=== PATIENT | female | born 1990 | race African-American/Black ===

== ENCOUNTER 2017-11-13 23:47 | Inpatient (IN) ==
[2017-11-14] MEDS ORDERED: ONDANSETRON 4 MG/2 ML VIAL IV STA (00:57)
[2017-11-14] MEDS ORDERED: MORPHINE 4 MG/1 ML VIAL IV STA (00:58)
[2017-11-14 01:38] LABS: Basophils % 0.2 % (0.0-0.8); Eosinophils # 0.1 10*3/uL (0.0-0.87); Eosinophils % 0.4 % (0.00-10.9); Hematocrit 40.7 VOL% (35.7-47.0); Hemoglobin 13.7 GM/DL (12.0-16.0); Immature Granulocytes % 0.3 %; Immature Granulocytes Absolute 0.04 #; Lymphocytes # 4.1 10*3/uL (1.4-4.0); Lymphocytes % 31.7 % (21.3-54.2); Mean Corpuscular HGB Conc 33.7 GM/DL (32-36); Mean Corpuscular Hemoglobin 29 PG (27-34); Mean Corpuscular Volume 85.7 FL (87-102); Mean Platelet Volume 10.7 FL (9.6-12.0); Monocytes # 0.5 10*3/uL (0.11-0.8); Monocytes % 4.1 % (1.7-12.7); Neutrophils # 8.3 10*3/uL (1.4-7.4); Neutrophils % 63.3 % (38.7-73.9); Platelet Count 326 T/CUMM (130-400); Red Blood Count 4.75 MC/CUMM (3.8-5.5)
[2017-11-14 01:49] LABS: INR 1.1; PT Patient Result 11.4 SECS; Partial Thromboplastin Time 25.2 SECS (0-40)
[2017-11-14 01:59] LABS: Albumin 4.1 G/DL (3.4-5.0); Apearance,Urine Slightly Hazy (Clear); Bilirubin,Total 0.5 MG/DL (0.2-1.0); Bilirubin,Urine Negative (Negative); Blood, Urine Small mg/dL (Negative); Calcium 9.5 MG/DL (8.5-10.1); Glucose,Urine (UA) Negative (Negative); Ketones,Urine Negative (Negative); Mucus,Urine Occasional /LPF (Occasional); Nitrite,Urine Negative (Negative); Osmolality,Calculated 275.5 MOS/KG (273-304); Potassium 4.2 MMOL/L (3.5-5.1); Protein,Urine 30 MG/DL; RBC,Urine 1 /HPF (0-4); Squamous Epithelial Cell,Urine Few /HPF (0-10); Total Protein 7.5 G/DL (6.4-8.3); Urine Color Yellow (Yellow); Urine Specific Gravity 1.019 (1.001-1.035); WBC,Urine 5 /HPF (0-6)
[2017-11-14] MEDS ORDERED: HYDROmorphone 2 MG/1 ML VIAL IV PRN (06:15)
[2017-11-14] MEDS: DEXT 5% NACL 0.45% KCL 10 MEQ 10 MEQ/1,000 ML BAG IV SCH ×2 (07:09→16:17)
[2017-11-14] MEDS: MORPHINE 4 MG/1 ML VIAL IV PRN ×2 (07:31→20:20)
[2017-11-14 08:33] LABS: T4 (Thyroxine) 7.7 UG/DL (4.7-13.3); Thyroid Stimulating Hormone 2.85 uIU/ml (0.358-3.74)
[2017-11-14] MEDS ORDERED: FUROSEMIDE 20 MG TABLET PO ONE (12:00)
[2017-11-14 13:19] LABS: Barbiturates Screen,Urine Negative (Negative); Benzodiazepines Screen,Urine Negative (Negative); Cannabinoid Screen,Urine Negative (Negative); Opiate Screen,Urine Positive (Negative); Phencyclidine Screen,Urine Negative (Negative)
[2017-11-14] MEDS: ASPIRIN EC 81 MG TABLET PO SCH (16:11)
[2017-11-15] MEDS: DEXT 5% NACL 0.45% KCL 10 MEQ 10 MEQ/1,000 ML BAG IV SCH (02:15)
[2017-11-15 06:16] LABS: Basophils % 0.3 % (0.0-0.8); Eosinophils # 0.1 10*3/uL (0.0-0.87); Eosinophils % 0.6 % (0.00-10.9); Hematocrit 38.4 VOL% (35.7-47.0); Hemoglobin 12.4 GM/DL (12.0-16.0); Immature Granulocytes % 0.4 %; Immature Granulocytes Absolute 0.04 #; Lymphocytes # 4.3 10*3/uL (1.4-4.0); Lymphocytes % 38.9 % (21.3-54.2); Mean Corpuscular HGB Conc 32.3 GM/DL (32-36); Mean Corpuscular Hemoglobin 29 PG (27-34); Mean Corpuscular Volume 88.3 FL (87-102); Mean Platelet Volume 10.2 FL (9.6-12.0); Monocytes # 0.5 10*3/uL (0.11-0.8); Monocytes % 4.7 % (1.7-12.7); Neutrophils # 6.1 10*3/uL (1.4-7.4); Neutrophils % 55.1 % (38.7-73.9); Platelet Count 282 T/CUMM (130-400); Red Blood Count 4.35 MC/CUMM (3.8-5.5)
[2017-11-15 06:47] LABS: Calcium 8.7 MG/DL (8.5-10.1); Osmolality,Calculated 273.7 MOS/KG (273-304); Potassium 4.1 MMOL/L (3.5-5.1)
[2017-11-15] MEDS: ASPIRIN EC 81 MG TABLET PO SCH (09:04)
[2017-11-15] MEDS ORDERED: ENALAPRIL 2.5 MG TABLET PO SCH (11:30)
[2017-11-15] MEDS: CARVEDILOL 3.125 MG TABLET PO SCH ×2 (12:19→20:59)
[2017-11-15] MEDS: FUROSEMIDE 20 MG/2 ML VIAL IV SCH (15:38)
[2017-11-15] MEDS ORDERED: POLYETHYLENE GLYCOL POWDER 17 GM PACK PO PRN (15:44)
[2017-11-16 05:19] LABS: Basophils % 0.2 % (0.0-0.8); Eosinophils # 0.1 10*3/uL (0.0-0.87); Eosinophils % 0.6 % (0.00-10.9); Hematocrit 39.9 VOL% (35.7-47.0); Hemoglobin 13.3 GM/DL (12.0-16.0); Immature Granulocytes % 0.4 %; Immature Granulocytes Absolute 0.05 #; Lymphocytes # 4.5 10*3/uL (1.4-4.0); Lymphocytes % 36.7 % (21.3-54.2); Mean Corpuscular HGB Conc 33.3 GM/DL (32-36); Mean Corpuscular Hemoglobin 29 PG (27-34); Mean Corpuscular Volume 86.7 FL (87-102); Mean Platelet Volume 10.7 FL (9.6-12.0); Monocytes # 0.6 10*3/uL (0.11-0.8); Monocytes % 4.7 % (1.7-12.7); Neutrophils % 57.4 % (38.7-73.9); Platelet Count 332 T/CUMM (130-400); Red Cell Distribution Width 14.2 % (9.3-17.3); White Blood Count 12.2 T/CUMM (4-12)
[2017-11-16 05:47] LABS: Osmolality,Calculated 276.4 MOS/KG (273-304); Potassium 3.7 MMOL/L (3.5-5.1)
[2017-11-16] MEDS ORDERED: diphenhydrAMINE CAP 25 MG CAPSULE PO ONE (08:03)
[2017-11-16] MEDS ORDERED: DIAZEPAM 5 MG TABLET PO ONE (08:03)
[2017-11-16] MEDS ORDERED: fentaNYL 100 MCG/2 ML VIAL ONE (10:32)
[2017-11-16] MEDS ORDERED: MIDAZOLAM 2 MG/2 ML VIAL ONE ×2 (10:32→10:49)
[2017-11-16] MEDS ORDERED: HEPARIN/NACL 0.9% 2 UNITS/ML 1,000 ML IV ONE (10:35)
[2017-11-16] MEDS ORDERED: diphenhydrAMINE 50 MG/1 ML VIAL ONE (10:50)
[2017-11-16] MEDS ORDERED: metOLazone 5 MG TABLET PO SCH (12:30)
[2017-11-16] MEDS: ASPIRIN EC 81 MG TABLET PO SCH (13:05)
[2017-11-16] MEDS: SPIRONOLACTONE 25 MG TABLET PO SCH (13:05)
[2017-11-16] MEDS: CARVEDILOL 3.125 MG TABLET PO SCH ×2 (13:05→21:36)
[2017-11-16] MEDS: POTASSIUM CHLORIDE 20 MEQ TABLET PO SCH ×2 (13:05→21:36)
[2017-11-16] MEDS: FUROSEMIDE 20 MG/2 ML VIAL IV SCH (13:06)
[2017-11-16] MEDS: MORPHINE 4 MG/1 ML VIAL IV PRN ×3 (13:17→23:17)
[2017-11-16] MEDS: FUROSEMIDE 40 MG/4 ML VIAL IV SCH (18:15)
[2017-11-17] MEDS: MORPHINE 4 MG/1 ML VIAL IV PRN (04:44)
[2017-11-17 06:20] LABS: Basophils % 0.3 % (0.0-0.8); Eosinophils % 0.2 % (0.00-10.9); Hematocrit 42.3 VOL% (35.7-47.0); Hemoglobin 14.3 GM/DL (12.0-16.0); Immature Granulocytes % 0.5 %; Immature Granulocytes Absolute 0.07 #; Lymphocytes # 2.7 10*3/uL (1.4-4.0); Lymphocytes % 18.1 % (21.3-54.2); Mean Corpuscular HGB Conc 33.8 GM/DL (32-36); Mean Corpuscular Hemoglobin 29 PG (27-34); Mean Corpuscular Volume 85.5 FL (87-102); Mean Platelet Volume 11.2 FL (9.6-12.0); Monocytes # 0.8 10*3/uL (0.11-0.8); Monocytes % 5.1 % (1.7-12.7); Neutrophils # 11.2 10*3/uL (1.4-7.4); Neutrophils % 75.8 % (38.7-73.9); Platelet Count 362 T/CUMM (130-400); Red Blood Count 4.95 MC/CUMM (3.8-5.5); Red Cell Distribution Width 14.3 % (9.3-17.3); White Blood Count 14.8 T/CUMM (4-12)
[2017-11-17 06:50] LABS: Calcium 9.4 MG/DL (8.5-10.1); Osmolality,Calculated 269.1 MOS/KG (273-304)
[2017-11-17 07:41] VITALS: BP 110/74
[2017-11-17] MEDS: FUROSEMIDE 40 MG/4 ML VIAL IV SCH (09:20)
[2017-11-17] MEDS: SPIRONOLACTONE 25 MG TABLET PO SCH (09:20)
[2017-11-17] MEDS: ASPIRIN EC 81 MG TABLET PO SCH (09:20)
[2017-11-17] MEDS: CARVEDILOL 3.125 MG TABLET PO SCH (09:20)
[2017-11-17] MEDS: POTASSIUM CHLORIDE 20 MEQ TABLET PO SCH (09:20)
[2017-11-17] MEDS ORDERED: SACUBITRIL/VALSARTAN 49-51 MG TABLET PO SCH (21:00)
== END 2017-11-17 10:31 | disposition home or self-care (01) | DRG 287 ==
LOC: N.ED 23:47 → N.EDINP 11-14 04:03 → SUATTDRO 11-14 04:03 → N.2E 11-14 05:56
PROVIDERS: ADMIT Internal Medicine Infectious Disease; ATTEND Internal Medicine Geriatric Medicine
PROC: CLCCHCL (ICD-10-PCS; 2017-11-16 10:45)

== ENCOUNTER 2017-12-19 19:48 | Observation (INO) ==
[2017-12-19] MEDS ORDERED: ASPIRIN 325 MG TABLET PO STA (20:52)
[2017-12-19] MEDS ORDERED: ONDANSETRON 4 MG/2 ML VIAL IV STA (20:52)
[2017-12-19] MEDS ORDERED: NITROGLYCERIN 2% OINT 1 INCH/GM PACK TOP STA (20:52)
[2017-12-19] MEDS ORDERED: MORPHINE 4 MG/1 ML VIAL IV STA (20:52)
[2017-12-19] MEDS ORDERED: FUROSEMIDE 20 MG/2 ML VIAL IV STA (21:33)
[2017-12-19 21:56] LABS: Basophils % 0.4 % (0.0-0.8); Eosinophils # 0.1 10*3/uL (0.0-0.87); Eosinophils % 0.8 % (0.00-10.9); Hematocrit 41.4 VOL% (35.7-47.0); Hemoglobin 13.7 GM/DL (12.0-16.0); Immature Granulocytes % 0.2 %; Immature Granulocytes Absolute 0.02 #; Lymphocytes # 3.6 10*3/uL (1.4-4.0); Lymphocytes % 33.7 % (21.3-54.2); Mean Corpuscular HGB Conc 33.1 GM/DL (32-36); Mean Corpuscular Hemoglobin 29 PG (27-34); Mean Corpuscular Volume 87.7 FL (87-102); Mean Platelet Volume 10.7 FL (9.6-12.0); Monocytes # 0.4 10*3/uL (0.11-0.8); Monocytes % 3.9 % (1.7-12.7); Neutrophils # 6.6 10*3/uL (1.4-7.4); Platelet Count 229 T/CUMM (130-400); Red Blood Count 4.72 MC/CUMM (3.8-5.5); Red Cell Distribution Width 13.7 % (9.3-17.3); White Blood Count 10.7 T/CUMM (4-12)
[2017-12-19 22:22] LABS: Alanine Aminotransferase 31 U/L (13-56); Alkaline Phosphatase 82 U/L (45-117); Aspartate Amino Transferase 21 U/L (0-37); Bilirubin,Total < 0.39 MG/DL (0.2-1.0); Blood Urea Nitrogen 10 MG/DL (7-18); Calcium 9.1 MG/DL (8.5-10.1); Glucose 84 MG/DL (74-106); Osmolality,Calculated 278.3 MOS/KG (273-304); Potassium 3.7 MMOL/L (3.5-5.1); Sodium 141 MMOL/L (136-145); Total Protein 7.6 G/DL (6.4-8.3)
[2017-12-19 22:49] LABS: PT Patient Result 10.8 SECS
[2017-12-19 23:12] LABS: Apearance,Urine CLEAR (Clear); Bilirubin,Urine Negative (Negative); Blood, Urine Negative (Negative); Glucose,Urine (UA) Negative (Negative); Ketones,Urine Negative (Negative); Nitrite,Urine Negative (Negative); Protein,Urine Negative; Squamous Epithelial Cell,Urine Occasional /HPF (0-10); Urine Color Colorless (Yellow); Urine Specific Gravity 1.003 (1.001-1.035); Urine Urobilinogen < 2.0 EU/DL (0.2-1.0); WBC,Urine <1 /HPF (0-6)
[2017-12-19 23:14] LABS: Barbiturates Screen,Urine Positive (Negative); Benzodiazepines Screen,Urine Negative (Negative); Cannabinoid Screen,Urine Negative (Negative); Opiate Screen,Urine Negative (Negative); Phencyclidine Screen,Urine Negative (Negative)
[2017-12-20] MEDS ORDERED: ACETAMINOPHEN 325 MG TABLET PO PRN (02:09)
[2017-12-20] MEDS ORDERED: MORPHINE 4 MG/1 ML VIAL IV PRN (02:09)
[2017-12-20] MEDS ORDERED: ONDANSETRON 4 MG/2 ML VIAL IV PRN (02:09)
[2017-12-20 05:36] LABS: Basophils % 0.3 % (0.0-0.8); Eosinophils # 0.1 10*3/uL (0.0-0.87); Eosinophils % 0.8 % (0.00-10.9); Immature Granulocytes % 0.3 %; Immature Granulocytes Absolute 0.03 #; Lymphocytes # 3.3 10*3/uL (1.4-4.0); Lymphocytes % 30.7 % (21.3-54.2); Mean Corpuscular HGB Conc 32.5 GM/DL (32-36); Mean Corpuscular Hemoglobin 28 PG (27-34); Mean Corpuscular Volume 87.3 FL (87-102); Mean Platelet Volume 11.5 FL (9.6-12.0); Monocytes # 0.5 10*3/uL (0.11-0.8); Monocytes % 4.6 % (1.7-12.7); Neutrophils # 6.9 10*3/uL (1.4-7.4); Neutrophils % 63.3 % (38.7-73.9); Platelet Count 222 T/CUMM (130-400); Red Blood Count 4.58 MC/CUMM (3.8-5.5); White Blood Count 10.8 T/CUMM (4-12)
[2017-12-20 06:26] LABS: Calcium 9.1 MG/DL (8.5-10.1); Osmolality,Calculated 277.4 MOS/KG (273-304); Potassium 3.4 MMOL/L (3.5-5.1)
[2017-12-20] MEDS ORDERED: FUROSEMIDE 20 MG/2 ML VIAL IV SCH (08:00)
[2017-12-20] MEDS: CARVEDILOL 3.125 MG TABLET PO SCH ×2 (08:53→16:27)
[2017-12-20] MEDS: SPIRONOLACTONE 25 MG TABLET PO SCH (08:53)
[2017-12-20] MEDS: SACUBITRIL/VALSARTAN 49-51 MG TABLET PO SCH ×2 (08:53→21:52)
[2017-12-20] MEDS: ENOXAPARIN 40 MG/0.4 ML SYRINGE SUBCUT SCH (08:54)
[2017-12-20] MEDS: ASPIRIN EC 81 MG TABLET PO SCH (08:56)
[2017-12-20] MEDS: NICOTINE 21 MG/24 HR PATCH TRANSDERM SCH (09:00)
[2017-12-20] MEDS ORDERED: FUROSEMIDE 20 MG/2 ML VIAL IV ONE (10:21)
[2017-12-20] MEDS: FUROSEMIDE 20 MG/2 ML VIAL IV SCH (16:26)
[2017-12-20] MEDS ORDERED: diphenhydrAMINE CAP 25 MG CAPSULE PO PRN (22:14)
[2017-12-21] MEDS: SACUBITRIL/VALSARTAN 49-51 MG TABLET PO SCH (08:43)
[2017-12-21] MEDS: CARVEDILOL 3.125 MG TABLET PO SCH (08:44)
[2017-12-21] MEDS: ASPIRIN EC 81 MG TABLET PO SCH (08:44)
[2017-12-21] MEDS: SPIRONOLACTONE 25 MG TABLET PO SCH (08:44)
[2017-12-21] MEDS: NICOTINE 21 MG/24 HR PATCH TRANSDERM SCH (08:46)
[2017-12-21] MEDS: FUROSEMIDE 20 MG/2 ML VIAL IV SCH (08:48)
[2017-12-21] MEDS: ENOXAPARIN 40 MG/0.4 ML SYRINGE SUBCUT SCH (08:50)
[2017-12-21 09:00] VITALS: BP 106/58
== END 2017-12-21 11:40 | disposition home or self-care (01) ==
LOC: N.ED 19:48 → N.EDINP 19:48 → N.4E 12-20 02:54
PROVIDERS: ADMIT Internal Medicine; ATTEND Internal Medicine

== ENCOUNTER 2018-03-24 23:15 | Inpatient (IN) ==
[2018-03-24] MEDS ORDERED: ASPIRIN 325 MG TABLET PO STA (23:56)
[2018-03-24] MEDS ORDERED: SODIUM CHLORIDE 0.9% 1,000 ML IV STA (23:56)
[2018-03-25 00:54] LABS: Basophils # 0.1 10*3/uL (0.0-0.2); Basophils % 0.5 % (0.0-0.8); Eosinophils # 0.1 10*3/uL (0.0-0.87); Eosinophils % 0.8 % (0.00-10.9); Hematocrit 39.4 VOL% (35.7-47.0); Immature Granulocytes % 1.3 %; Immature Granulocytes Absolute 0.17 #; Lymphocytes % 29.8 % (21.3-54.2); Mean Corpuscular Hemoglobin 30 PG (27-34); Mean Corpuscular Volume 89.3 FL (87-102); Mean Platelet Volume 10.7 FL (9.6-12.0); Monocytes # 0.5 10*3/uL (0.11-0.8); Monocytes % 3.8 % (1.7-12.7); Neutrophils # 8.5 10*3/uL (1.4-7.4); Neutrophils % 63.8 % (38.7-73.9); Platelet Count 288 T/CUMM (130-400); Red Blood Count 4.41 MC/CUMM (3.8-5.5); Red Cell Distribution Width 14.9 % (9.3-17.3); White Blood Count 13.4 T/CUMM (4-12)
[2018-03-25 01:41] LABS: Alanine Aminotransferase 18 U/L (13-56); Albumin 3.8 G/DL (3.4-5.0); Alkaline Phosphatase 73 U/L (45-117); Aspartate Amino Transferase 14 U/L (0-37); Bilirubin,Total < 0.39 MG/DL (0.2-1.0); Blood Urea Nitrogen 8 MG/DL (7-18); Calcium 8.8 MG/DL (8.5-10.1); Glucose 99 MG/DL (74-106); Osmolality,Calculated 276.4 MOS/KG (273-304); Potassium 3.7 MMOL/L (3.5-5.1); Sodium 140 MMOL/L (136-145); Total Protein 7.6 G/DL (6.4-8.3)
[2018-03-25] MEDS ORDERED: ONDANSETRON 4 MG/2 ML VIAL IV PRN (02:27)
[2018-03-25] MEDS ORDERED: NITROGLYCERIN SL 0.4 MG TABLET SL PRN (04:41)
[2018-03-25 04:58] LABS: Basophils # 0.1 10*3/uL (0.0-0.2); Basophils % 0.3 % (0.0-0.8); Eosinophils # 0.1 10*3/uL (0.0-0.87); Eosinophils % 0.7 % (0.00-10.9); Hematocrit 39.1 VOL% (35.7-47.0); Hemoglobin 12.7 GM/DL (12.0-16.0); Immature Granulocytes % 0.5 %; Immature Granulocytes Absolute 0.08 #; Lymphocytes # 4.9 10*3/uL (1.4-4.0); Lymphocytes % 33.7 % (21.3-54.2); Mean Corpuscular HGB Conc 32.5 GM/DL (32-36); Mean Corpuscular Hemoglobin 29 PG (27-34); Mean Corpuscular Volume 90.5 FL (87-102); Mean Platelet Volume 10.3 FL (9.6-12.0); Monocytes # 0.6 10*3/uL (0.11-0.8); Monocytes % 4.2 % (1.7-12.7); Neutrophils # 8.8 10*3/uL (1.4-7.4); Neutrophils % 60.6 % (38.7-73.9); Platelet Count 292 T/CUMM (130-400); Red Blood Count 4.32 MC/CUMM (3.8-5.5); White Blood Count 14.6 T/CUMM (4-12)
[2018-03-25] MEDS: ACETAMINOPHEN 500 MG TABLET PO PRN ×2 (05:18→21:25)
[2018-03-25 05:22] LABS: Troponin I 0.125 NG/ML (0.00-0.045)
[2018-03-25 05:30] LABS: Albumin 3.5 G/DL (3.4-5.0); Bilirubin,Total 0.8 MG/DL (0.2-1.0); Calcium 8.3 MG/DL (8.5-10.1); Osmolality,Calculated 276.4 MOS/KG (273-304); Potassium 3.6 MMOL/L (3.5-5.1); Total Protein 7.3 G/DL (6.4-8.3)
[2018-03-25] MEDS: MORPHINE 4 MG/1 ML VIAL IV PRN (06:25)
[2018-03-25 08:37] LABS: Apearance,Urine Slightly Hazy (Clear); Bilirubin,Urine Negative (Negative); Blood, Urine Negative (Negative); Glucose,Urine (UA) Negative (Negative); Ketones,Urine Negative (Negative); Mucus,Urine Occasional /LPF (Occasional); Nitrite,Urine Negative (Negative); Protein,Urine 30 MG/DL; RBC,Urine 1 /HPF (0-4); Squamous Epithelial Cell,Urine Occasional /HPF (0-10); Urine Color Yellow (Yellow); Urine Specific Gravity 1.017 (1.001-1.035); WBC,Urine 7 /HPF (0-6)
[2018-03-25 09:23] LABS: Barbiturates Screen,Urine Negative (Negative); Benzodiazepines Screen,Urine Negative (Negative); Cannabinoid Screen,Urine Negative (Negative); Opiate Screen,Urine Positive (Negative); Phencyclidine Screen,Urine Negative (Negative)
[2018-03-25 09:27] LABS: Troponin I 0.152 NG/ML (0.00-0.045)
[2018-03-25] MEDS ORDERED: POTASSIUM CHLORIDE 20 MEQ TABLET PO PRN (13:02)
[2018-03-25] MEDS ORDERED: MAGNESIUM SULF RIDER 2 GM in PREMIX 1 EACH IV PRN (13:03)
[2018-03-25] MEDS ORDERED: MAGNESIUM SULF RIDER 4 GM in PREMIX 1 EACH IV PRN (13:03)
[2018-03-25] MEDS: POTASSIUM CHLORIDE 20 MEQ TABLET PO SCH (14:14)
[2018-03-25] MEDS: ISOSORBIDE MONONITRATE 30 MG TABLET PO SCH (14:14)
[2018-03-25] MEDS: SPIRONOLACTONE 25 MG TABLET PO SCH (14:15)
[2018-03-25] MEDS: hydrALAZINE 10 MG TABLET PO SCH ×2 (14:21→21:26)
[2018-03-25] MEDS: FUROSEMIDE 40 MG/4 ML VIAL IV SCH (17:30)
[2018-03-25] MEDS: CARVEDILOL 6.25 MG TABLET PO SCH (21:26)
[2018-03-26] MEDS: MORPHINE 4 MG/1 ML VIAL IV PRN (01:09)
[2018-03-26] MEDS ORDERED: IBUPROFEN 400 MG TABLET PO PRN (09:55)
[2018-03-26] MEDS: ISOSORBIDE MONONITRATE 30 MG TABLET PO SCH (09:59)
[2018-03-26] MEDS: ACETAMINOPHEN 500 MG TABLET PO PRN (09:59)
[2018-03-26] MEDS: SPIRONOLACTONE 25 MG TABLET PO SCH (10:00)
[2018-03-26] MEDS: CARVEDILOL 6.25 MG TABLET PO SCH ×2 (10:00→21:47)
[2018-03-26] MEDS: LOSARTAN 25 MG TABLET PO SCH (10:00)
[2018-03-26] MEDS: POTASSIUM CHLORIDE 20 MEQ TABLET PO SCH (10:00)
[2018-03-26] MEDS: hydrALAZINE 10 MG TABLET PO SCH ×3 (10:00→21:47)
[2018-03-26] MEDS: FUROSEMIDE 40 MG/4 ML VIAL IV SCH ×2 (10:01→16:31)
[2018-03-27] MEDS: POTASSIUM CHLORIDE 20 MEQ TABLET PO SCH (08:54)
[2018-03-27] MEDS: ISOSORBIDE MONONITRATE 30 MG TABLET PO SCH (08:54)
[2018-03-27] MEDS: LOSARTAN 25 MG TABLET PO SCH (08:54)
[2018-03-27] MEDS: CARVEDILOL 6.25 MG TABLET PO SCH ×2 (08:54→20:48)
[2018-03-27] MEDS: hydrALAZINE 10 MG TABLET PO SCH ×3 (08:55→20:50)
[2018-03-27] MEDS: SPIRONOLACTONE 25 MG TABLET PO SCH (08:55)
[2018-03-27] MEDS: FUROSEMIDE 40 MG/4 ML VIAL IV SCH ×2 (08:55→16:13)
[2018-03-27] MEDS ORDERED: DIAZEPAM 5 MG TABLET PO ONE (10:33)
[2018-03-27] MEDS ORDERED: ceFAZolin 1,000 MG VIAL IRRIG ONE (10:33)
[2018-03-27] MEDS ORDERED: ceFAZolin 1,000 MG in SYRINGE 1 EACH IV ONE (10:33)
[2018-03-27] MEDS ORDERED: diphenhydrAMINE CAP 25 MG CAPSULE PO ONE (10:33)
[2018-03-27] MEDS ORDERED: SODIUM CHLORIDE 0.9% 1,000 ML IV SCH (11:00)
[2018-03-27] MEDS ORDERED: MAGNESIUM HYDROXIDE SUSP 30 ML UDCUP PO PRN (18:26)
[2018-03-27] MEDS ORDERED: diphenhydrAMINE CAP 25 MG CAPSULE PO PRN (18:26)
[2018-03-28 04:48] LABS: Basophils # 0.1 10*3/uL (0.0-0.2); Basophils % 0.4 % (0.0-0.8); Eosinophils # 0.1 10*3/uL (0.0-0.87); Eosinophils % 0.9 % (0.00-10.9); Hematocrit 43.4 VOL% (35.7-47.0); Immature Granulocytes % 0.4 %; Immature Granulocytes Absolute 0.05 #; Lymphocytes # 4.6 10*3/uL (1.4-4.0); Lymphocytes % 33.1 % (21.3-54.2); Mean Corpuscular HGB Conc 32.3 GM/DL (32-36); Mean Corpuscular Hemoglobin 29 PG (27-34); Mean Platelet Volume 10.4 FL (9.6-12.0); Monocytes # 0.8 10*3/uL (0.11-0.8); Monocytes % 5.8 % (1.7-12.7); Neutrophils # 8.2 10*3/uL (1.4-7.4); Neutrophils % 59.4 % (38.7-73.9); Platelet Count 327 T/CUMM (130-400); Red Blood Count 4.82 MC/CUMM (3.8-5.5); Red Cell Distribution Width 14.7 % (9.3-17.3); White Blood Count 13.8 T/CUMM (4-12)
[2018-03-28 05:27] LABS: Calcium 9.4 MG/DL (8.5-10.1); Osmolality,Calculated 276.5 MOS/KG (273-304); Potassium 4.3 MMOL/L (3.5-5.1)
[2018-03-28] MEDS: LOSARTAN 25 MG TABLET PO SCH (08:42)
[2018-03-28] MEDS: POTASSIUM CHLORIDE 20 MEQ TABLET PO SCH (08:42)
[2018-03-28] MEDS: ISOSORBIDE MONONITRATE 30 MG TABLET PO SCH (08:42)
[2018-03-28] MEDS: SPIRONOLACTONE 25 MG TABLET PO SCH (08:43)
[2018-03-28] MEDS: CARVEDILOL 6.25 MG TABLET PO SCH ×2 (08:43→20:38)
[2018-03-28] MEDS: hydrALAZINE 10 MG TABLET PO SCH ×2 (08:45→20:38)
[2018-03-28] MEDS ORDERED: SODIUM CHLORIDE 0.9% 1,000 ML IV SCH (11:00)
[2018-03-28] MEDS ORDERED: DIAZEPAM 5 MG TABLET PO ONE (12:00)
[2018-03-28] MEDS ORDERED: diphenhydrAMINE CAP 25 MG CAPSULE PO ONE (12:00)
[2018-03-28] MEDS ORDERED: ceFAZolin 1,000 MG in SYRINGE 1 EACH IV ONE (13:00)
[2018-03-28] MEDS ORDERED: ceFAZolin 1,000 MG VIAL IRRIG ONE (13:00)
[2018-03-28] MEDS ORDERED: MIDAZOLAM 2 MG/2 ML VIAL ONE ×3 (13:23→13:55)
[2018-03-28] MEDS ORDERED: fentaNYL 100 MCG/2 ML VIAL ONE (13:23)
[2018-03-28] MEDS ORDERED: HEPARIN/NACL 0.9% 2 UNITS/ML 500 ML IV ONE (13:25)
[2018-03-28] MEDS ORDERED: LIDOCAINE 1% 20 ML VIAL ONE (13:26)
[2018-03-28] MEDS ORDERED: ceFAZolin 1,000 MG VIAL ONE ×2 (13:39→14:09)
[2018-03-28] MEDS ORDERED: diphenhydrAMINE 50 MG/1 ML VIAL ONE (13:52)
[2018-03-28] MEDS ORDERED: TISSUE ADHESIVE 1 EACH APPLICATOR TOP ONE (14:09)
[2018-03-28] MEDS: FUROSEMIDE 40 MG TABLET PO SCH (16:39)
[2018-03-29 05:33] LABS: Basophils # 0.1 10*3/uL (0.0-0.2); Basophils % 0.4 % (0.0-0.8); Eosinophils # 0.2 10*3/uL (0.0-0.87); Eosinophils % 1.3 % (0.00-10.9); Hematocrit 40.9 VOL% (35.7-47.0); Hemoglobin 13.1 GM/DL (12.0-16.0); Immature Granulocytes % 0.3 %; Immature Granulocytes Absolute 0.04 #; Lymphocytes # 4.5 10*3/uL (1.4-4.0); Lymphocytes % 37.2 % (21.3-54.2); Mean Corpuscular Hemoglobin 29 PG (27-34); Mean Corpuscular Volume 91.5 FL (87-102); Mean Platelet Volume 10.2 FL (9.6-12.0); Monocytes # 0.8 10*3/uL (0.11-0.8); Monocytes % 6.4 % (1.7-12.7); Neutrophils # 6.6 10*3/uL (1.4-7.4); Neutrophils % 54.4 % (38.7-73.9); Platelet Count 272 T/CUMM (130-400); Red Blood Count 4.47 MC/CUMM (3.8-5.5); Red Cell Distribution Width 14.6 % (9.3-17.3); White Blood Count 12.2 T/CUMM (4-12)
[2018-03-29 05:54] LABS: Calcium 8.6 MG/DL (8.5-10.1); Potassium 3.8 MMOL/L (3.5-5.1)
[2018-03-29 08:00] VITALS: BP 99/57
[2018-03-29] MEDS: FUROSEMIDE 40 MG TABLET PO SCH (08:17)
[2018-03-29] MEDS: SPIRONOLACTONE 25 MG TABLET PO SCH (08:17)
[2018-03-29] MEDS: ISOSORBIDE MONONITRATE 30 MG TABLET PO SCH (08:18)
[2018-03-29] MEDS: LOSARTAN 25 MG TABLET PO SCH (08:18)
[2018-03-29] MEDS: POTASSIUM CHLORIDE 20 MEQ TABLET PO SCH (08:18)
[2018-03-29] MEDS: CARVEDILOL 6.25 MG TABLET PO SCH (08:18)
[2018-03-29] MEDS: hydrALAZINE 10 MG TABLET PO SCH (08:18)
[2018-03-29] MEDS ORDERED: CARVEDILOL 12.5 MG TABLET PO SCH (08:45)
== END 2018-03-29 12:14 | disposition home or self-care (01) ==
LOC: N.ED 23:15 → N.EDINP 23:15 → N.TELEN 03-25 03:03
PROVIDERS: ADMIT Internal Medicine Clinical Cardiac Electrophysiology; ATTEND Internal Medicine Clinical Cardiac Electrophysiology

== ENCOUNTER 2020-05-30 00:51 | Observation (INO) ==
[2020-05-30 01:22] LABS: Basophils # 0.1 10*3/uL (0.0-0.2); Basophils % 0.4 % (0.0-0.8); Eosinophils # 0.1 10*3/uL (0.0-0.87); Hematocrit 39.8 VOL% (35.7-47.0); Hemoglobin 13.1 GM/DL (12.0-16.0); Immature Granulocytes % 0.4 %; Immature Granulocytes Absolute 0.05 #; Lymphocytes # 5.3 10*3/uL (1.4-4.0); Lymphocytes % 38.1 % (21.3-54.2); Mean Corpuscular HGB Conc 32.9 GM/DL (32-36); Mean Corpuscular Volume 89.6 FL (87-102); Mean Platelet Volume 10.3 FL (9.6-12.0); Monocytes % 6.5 % (1.7-12.7); Neutrophils % 53.6 % (38.7-73.9); Platelet Count 254 T/CUMM (130-400); Red Blood Count 4.44 MC/CUMM (3.8-5.5); White Blood Count 13.9 T/CUMM (4-12)
[2020-05-30 01:43] LABS: Alanine Aminotransferase 24 U/L (13-56); Albumin 3.7 G/DL (3.4-5.0); Alkaline Phosphatase 76 U/L (45-117); Aspartate Amino Transferase 17 U/L (0-37); Bilirubin,Total < 0.39 MG/DL (0.2-1.0); Blood Urea Nitrogen 15 MG/DL (7-18); Calcium 9.2 MG/DL (8.5-10.1); Estimated Glom Filtration Rate 154 ML/MIN; Glucose 100 MG/DL (74-106); Osmolality,Calculated 279.4 MOS/KG (273-304); Total Protein 7.7 G/DL (6.4-8.3)
[2020-05-30] MEDS ORDERED: ASPIRIN CHEW 81 MG TABLET PO STA (02:10)
[2020-05-30] MEDS ORDERED: NITROGLYCERIN SL 0.4 MG TABLET SL STA (02:10)
[2020-05-30] MEDS ORDERED: DEXTROSE 50% 25 GM/50 ML VIAL IV PRN (02:30)
[2020-05-30] MEDS ORDERED: NITROGLYCERIN SL 0.4 MG TABLET SL PRN (02:30)
[2020-05-30] MEDS ORDERED: GLUCAGON 1 MG VIAL IM PRN (02:30)
[2020-05-30] MEDS ORDERED: ONDANSETRON 4 MG/2 ML VIAL IV PRN (02:30)
[2020-05-30] MEDS ORDERED: MORPHINE 4 MG/1 ML VIAL IV PRN (02:30)
[2020-05-30] MEDS ORDERED: ACETAMINOPHEN 325 MG TABLET PO PRN (02:30)
[2020-05-30 02:40] LABS: Hypochromasia 2+; Microcytosis 1+; Platelet Estimate Normal
[2020-05-30 06:27] LABS: Barbiturates Screen,Urine Negative (Negative); Benzodiazepines Screen,Urine Negative (Negative); Cannabinoid Screen,Urine Negative (Negative); Opiate Screen,Urine Negative (Negative); Phencyclidine Screen,Urine Negative (Negative)
[2020-05-30 07:05] LABS: Basophils # 0.1 10*3/uL (0.0-0.2); Basophils % 0.5 % (0.0-0.8); Eosinophils # 0.1 10*3/uL (0.0-0.87); Eosinophils % 1.1 % (0.00-10.9); Hematocrit 37.1 VOL% (35.7-47.0); Hemoglobin 12.3 GM/DL (12.0-16.0); Immature Granulocytes % 0.3 %; Immature Granulocytes Absolute 0.03 #; Lymphocytes # 4.1 10*3/uL (1.4-4.0); Lymphocytes % 37.5 % (21.3-54.2); Mean Corpuscular HGB Conc 33.2 GM/DL (32-36); Mean Corpuscular Volume 90.3 FL (87-102); Mean Platelet Volume 10.3 FL (9.6-12.0); Monocytes % 6.3 % (1.7-12.7); Neutrophils % 54.3 % (38.7-73.9); Platelet Count 224 T/CUMM (130-400); Red Blood Count 4.11 MC/CUMM (3.8-5.5); White Blood Count 10.8 T/CUMM (4-12)
[2020-05-30 07:27] LABS: Troponin I 0.172 NG/ML (0.00-0.045)
[2020-05-30 07:36] LABS: Platelet Estimate Normal
[2020-05-30 07:37] LABS: Anisocytosis 1+; Macrocytosis Slight
[2020-05-30] MEDS ORDERED: FUROSEMIDE 40 MG/4 ML VIAL IV SCH (08:00)
[2020-05-30] MEDS ORDERED: DIGOXIN 0.25 MG TABLET PO SCH (09:00)
[2020-05-30] MEDS ORDERED: PANTOPRAZOLE 40 MG TABLET PO SCH (09:00)
[2020-05-30] MEDS ORDERED: SPIRONOLACTONE 25 MG TABLET PO SCH (09:00)
[2020-05-30] MEDS ORDERED: BACLOFEN 10 MG TABLET PO SCH (09:00)
[2020-05-30 11:36] VITALS: BP 101/53
[2020-05-30] MEDS ORDERED: KETOROLAC 30 MG/1 ML VIAL IV ONE (12:27)
[2020-05-30] MEDS ORDERED: carvediloL 25 MG TABLET PO SCH (13:00)
[2020-05-30] MEDS ORDERED: FUROSEMIDE 80 MG TABLET PO SCH (13:00)
[2020-05-30 13:27] LABS: Troponin I 0.176 NG/ML (0.00-0.045)
[2020-05-31] MEDS ORDERED: ASPIRIN EC 81 MG TABLET PO SCH (09:00)
[2020-05-31] MEDS ORDERED: ASPIRIN EC 325 MG TABLET PO SCH (09:00)
== END 2020-05-30 13:53 | disposition home or self-care (01) ==
LOC: N.EDINP 00:51 → N.ED 00:51 → N.EDINP 04:05 → N.TELES 04:15
PROVIDERS: ADMIT Internal Medicine; ATTEND Internal Medicine

== ENCOUNTER 2021-01-02 22:32 | Observation (INO) ==
[2021-01-02 23:50] LABS: Basophils % 0.2 % (0.0-0.8); Eosinophils # 0.1 10*3/uL (0.0-0.87); Eosinophils % 0.7 % (0.00-10.9); Hematocrit 38.3 VOL% (35.7-47.0); Hemoglobin 12.9 GM/DL (12.0-16.0); Immature Granulocytes % 0.4 %; Immature Granulocytes Absolute 0.05 #; Lymphocytes # 3.9 10*3/uL (1.4-4.0); Lymphocytes % 28.2 % (21.3-54.2); Mean Corpuscular HGB Conc 33.7 GM/DL (32-36); Mean Corpuscular Volume 89.1 FL (87-102); Mean Platelet Volume 10.9 FL (9.6-12.0); Neutrophils % 66.5 % (38.7-73.9); Platelet Count 253 T/CUMM (130-400); Red Cell Distribution Width 13.2 % (9.3-17.3); White Blood Count 13.7 T/CUMM (4-12)
[2021-01-03 00:36] LABS: Albumin 3.7 G/DL (3.4-5.0); Bilirubin,Total 0.7 MG/DL (0.20-1.00); Calcium 8.8 MG/DL (8.5-10.1); Osmolality,Calculated 278.4 MOS/KG (273-304); Potassium 2.8 MMOL/L (3.5-5.1); Total Protein 7.3 G/DL (6.4-8.2)
[2021-01-03] MEDS ORDERED: ASPIRIN 325 MG TABLET PO STA (00:42)
[2021-01-03] MEDS ORDERED: NITROGLYCERIN SL 0.4 MG TABLET SL STA ×2 (00:42→01:53)
[2021-01-03] MEDS ORDERED: POTASSIUM CHLORIDE 20 MEQ TABLET PO STA (00:47)
[2021-01-03 01:42] LABS: Bacteria,Urine Occasional /HPF (Few); Bilirubin,Urine Negative (Negative); Blood, Urine Negative (Negative); Glucose,Urine (UA) >=500 mg/dL (Negative); Ketones,Urine Negative (Negative); Nitrite,Urine Negative (Negative); Protein,Urine Negative; RBC,Urine 16 /HPF (0-4); Squamous Epithelial Cell,Urine Few /HPF (0-10); Urine Appearance CLOUDY (Clear); Urine Color Yellow (Yellow); Urine Specific Gravity 1.016 (1.001-1.035); Urine Urobilinogen < 2.0 EU/DL (0.2-1.0)
[2021-01-03] MEDS ORDERED: cefTRIAXone 1,000 MG in SODIUM CHLORIDE 0.9% 100 ML IV STA (01:52)
[2021-01-03] MEDS ORDERED: MORPHINE 2 MG/1 ML SYRINGE IV STA (01:53)
[2021-01-03] MEDS ORDERED: ONDANSETRON 4 MG/2 ML VIAL IV STA (01:53)
[2021-01-03] MEDS ORDERED: DEXTROSE 50% 25 GM/50 ML VIAL IV PRN (03:12)
[2021-01-03] MEDS ORDERED: GLUCAGON 1 MG VIAL IM PRN (03:12)
[2021-01-03] MEDS ORDERED: ACETAMINOPHEN 325 MG TABLET PO PRN (03:18)
[2021-01-03] MEDS ORDERED: ONDANSETRON 4 MG/2 ML VIAL IV PRN (03:18)
[2021-01-03] MEDS ORDERED: hydrALAZINE 20 MG/1 ML VIAL IV PRN (03:18)
[2021-01-03] MEDS ORDERED: DOCUSATE SODIUM 100 MG CAPSULE PO PRN (03:18)
[2021-01-03] MEDS ORDERED: MORPHINE 2 MG/1 ML SYRINGE IV PRN (03:18)
[2021-01-03] MEDS ORDERED: MAGNESIUM SULF RIDER 2 GM/50 ML PREMIX IV PRN (03:26)
[2021-01-03] MEDS ORDERED: MAGNESIUM SULF RIDER 4 GM/100 ML PREMIX IV PRN (03:26)
[2021-01-03] MEDS ORDERED: NITROGLYCERIN SL 0.4 MG TABLET SL PRN (03:27)
[2021-01-03] MEDS: ENOXAPARIN 40 MG/0.4 ML SYRINGE SUBCUT SCH (04:20)
[2021-01-03] MEDS ORDERED: NICOTINE 21 MG/24 HR PATCH TRANSDERM PRN (05:22)
[2021-01-03] MEDS: INSULIN LISPRO 100 UNIT/ML SUBCUT SCH ×4 (08:36→20:01)
[2021-01-03] MEDS: POTASSIUM CHLORIDE 20 MEQ TABLET PO PRN ×2 (09:33→11:29)
[2021-01-03] MEDS ORDERED: KETOROLAC 30 MG/1 ML VIAL IV PRN (15:48)
[2021-01-03] MEDS: FUROSEMIDE 80 MG TABLET PO SCH (16:11)
[2021-01-03] MEDS: BACLOFEN 10 MG TABLET PO SCH (21:24)
[2021-01-04] MEDS ORDERED: cefTRIAXone 1,000 MG in SODIUM CHLORIDE 0.9% 100 ML IV SCH (02:00)
[2021-01-04] MEDS: ENOXAPARIN 40 MG/0.4 ML SYRINGE SUBCUT SCH (02:35)
[2021-01-04 04:53] LABS: Basophils % 0.4 % (0.0-0.8); Eosinophils # 0.1 10*3/uL (0.0-0.87); Eosinophils % 0.7 % (0.00-10.9); Hematocrit 36.3 VOL% (35.7-47.0); Hemoglobin 12.1 GM/DL (12.0-16.0); Immature Granulocytes % 0.3 %; Immature Granulocytes Absolute 0.03 #; Lymphocytes # 1.9 10*3/uL (1.4-4.0); Lymphocytes % 18.7 % (21.3-54.2); Mean Corpuscular HGB Conc 33.3 GM/DL (32-36); Mean Corpuscular Volume 90.3 FL (87-102); Mean Platelet Volume 11.3 FL (9.6-12.0); Monocytes % 4.1 % (1.7-12.7); Neutrophils % 75.8 % (38.7-73.9); Platelet Count 219 T/CUMM (130-400); Red Blood Count 4.02 MC/CUMM (3.8-5.5); White Blood Count 10.3 T/CUMM (4-12)
[2021-01-04] MEDS: FUROSEMIDE 80 MG TABLET PO SCH (05:03)
[2021-01-04 05:16] LABS: Calcium 8.7 MG/DL (8.5-10.1); Osmolality,Calculated 278.4 MOS/KG (273-304); Potassium 3.4 MMOL/L (3.5-5.1)
[2021-01-04] MEDS ORDERED: FUROSEMIDE 80 MG TABLET PO SCH (06:00)
[2021-01-04] MEDS ORDERED: carvediloL 25 MG TABLET PO SCH (06:00)
[2021-01-04] MEDS: INSULIN LISPRO 100 UNIT/ML SUBCUT SCH ×2 (07:45→11:32)
[2021-01-04] MEDS: BACLOFEN 10 MG TABLET PO SCH (08:24)
[2021-01-04] MEDS ORDERED: VALSARTAN 80 MG TABLET PO SCH (09:00)
[2021-01-04] MEDS ORDERED: PANTOPRAZOLE 40 MG TABLET PO SCH (09:00)
[2021-01-04] MEDS ORDERED: DIGOXIN 0.25 MG TABLET PO SCH (09:00)
[2021-01-04] MEDS ORDERED: SPIRONOLACTONE 25 MG TABLET PO SCH (09:00)
[2021-01-04 12:46] VITALS: BP 92/63
== END 2021-01-04 13:17 | disposition home or self-care (01) ==
LOC: N.ED 22:32 → N.EDINP 22:32 → N.TELEN 01-03 03:54
PROVIDERS: ADMIT Phlebology; ATTEND Phlebology

== ENCOUNTER 2021-03-04 02:50 | Inpatient (IN) ==
[2021-03-04] MEDS ORDERED: ALUM/MAG/SIMETH/LIDO VISC 1:1 30 ML BOTTLE PO STA (03:18)
[2021-03-04] MEDS ORDERED: ONDANSETRON 4 MG/2 ML VIAL IV STA (03:18)
[2021-03-04] MEDS ORDERED: PANTOPRAZOLE 40 MG VIAL IV STA (03:18)
[2021-03-04] MEDS ORDERED: HYDROmorphone 2 MG/1 ML VIAL IV STA (03:18)
[2021-03-04 03:37] LABS: Basophils # 0.1 10*3/uL (0.0-0.2); Basophils % 0.5 % (0.0-0.8); Eosinophils # 0.1 10*3/uL (0.0-0.87); Eosinophils % 0.5 % (0.00-10.9); Hematocrit 41.1 VOL% (35.7-47.0); Hemoglobin 13.2 GM/DL (12.0-16.0); Immature Granulocytes % 0.4 %; Immature Granulocytes Absolute 0.05 #; Lymphocytes # 5.3 10*3/uL (1.4-4.0); Lymphocytes % 40.5 % (21.3-54.2); Mean Corpuscular HGB Conc 32.1 GM/DL (32-36); Mean Corpuscular Volume 90.5 FL (87-102); Mean Platelet Volume 10.1 FL (9.6-12.0); Monocytes % 4.5 % (1.7-12.7); Neutrophils % 53.6 % (38.7-73.9); Platelet Count 349 T/CUMM (130-400); Red Blood Count 4.54 MC/CUMM (3.8-5.5); Red Cell Distribution Width 14.1 % (9.3-17.3); White Blood Count 13.1 T/CUMM (4-12)
[2021-03-04 03:47] LABS: Bilirubin,Urine Negative (Negative); Blood, Urine Negative (Negative); Glucose,Urine (UA) Negative (Negative); Ketones,Urine Negative (Negative); Mucus,Urine Few /LPF (Occasional); Nitrite,Urine Negative (Negative); Protein,Urine 100 MG/DL; RBC,Urine 22 /HPF (0-4); Squamous Epithelial Cell,Urine Many /HPF (0-10); Urine Appearance CLOUDY (Clear); Urine Color Amber (Yellow); Urine Specific Gravity 1.023 (1.001-1.035)
[2021-03-04 04:01] LABS: Albumin 3.7 G/DL (3.4-5.0); Bilirubin,Total 0.7 MG/DL (0.20-1.00); Calcium 9.3 MG/DL (8.5-10.1); Osmolality,Calculated 273.8 MOS/KG (273-304); Total Protein 7.6 G/DL (6.4-8.2)
[2021-03-04] MEDS ORDERED: cefTRIAXone 1,000 MG in SODIUM CHLORIDE 0.9% 100 ML IV STA (04:11)
[2021-03-04] MEDS ORDERED: MAGNESIUM SULF RIDER 2 GM/50 ML PREMIX IV STA (04:11)
[2021-03-04] MEDS ORDERED: POTASSIUM CHLORIDE 20 MEQ TABLET PO STA (04:11)
[2021-03-04] MEDS ORDERED: DEXTROSE 50% 25 GM/50 ML VIAL IV PRN (05:29)
[2021-03-04] MEDS ORDERED: GLUCAGON 1 MG VIAL IM PRN (05:29)
[2021-03-04] MEDS ORDERED: MORPHINE 2 MG/1 ML SYRINGE IV PRN (05:39)
[2021-03-04] MEDS ORDERED: POTASSIUM CHLORIDE 20 MEQ TABLET PO ONE (08:04)
[2021-03-04] MEDS ORDERED: DAPAGLIFLOZIN 10 MG TABLET PO SCH (09:00)
[2021-03-04 09:52] LABS: Calcium 8.3 MG/DL (8.5-10.1); Osmolality,Calculated 274.7 MOS/KG (273-304); Potassium 3.2 MMOL/L (3.5-5.1)
[2021-03-04] MEDS: PIPERACILLIN/TAZOBACTAM 3,375 MG in SODIUM CHLORIDE 0.9% 100 ML IV SCH ×3 (10:49→23:39)
[2021-03-04] MEDS: VALSARTAN 80 MG TABLET PO SCH (14:21)
[2021-03-04] MEDS: carvediloL 25 MG TABLET PO SCH ×3 (14:21→22:04)
[2021-03-04] MEDS: MAGNESIUM OXIDE 400 MG TABLET PO SCH ×2 (14:21→22:01)
[2021-03-04] MEDS: SPIRONOLACTONE 25 MG TABLET PO SCH (14:21)
[2021-03-04] MEDS: FUROSEMIDE 40 MG TABLET PO SCH ×2 (14:21→15:15)
[2021-03-04] MEDS: ASPIRIN EC 81 MG TABLET PO SCH (14:21)
[2021-03-04] MEDS: DIGOXIN 0.25 MG TABLET PO SCH ×2 (14:21→14:35)
[2021-03-04] MEDS: ENOXAPARIN 40 MG/0.4 ML SYRINGE SUBCUT SCH (14:22)
[2021-03-04] MEDS: ONDANSETRON 4 MG/2 ML VIAL IV PRN (17:44)
[2021-03-05 06:06] LABS: Basophils % 0.4 % (0.0-0.8); Eosinophils # 0.1 10*3/uL (0.0-0.87); Eosinophils % 0.7 % (0.00-10.9); Hematocrit 35.3 VOL% (35.7-47.0); Hemoglobin 11.4 GM/DL (12.0-16.0); Immature Granulocytes % 0.5 %; Immature Granulocytes Absolute 0.04 #; Lymphocytes # 3.1 10*3/uL (1.4-4.0); Lymphocytes % 37.4 % (21.3-54.2); Mean Corpuscular HGB Conc 32.3 GM/DL (32-36); Mean Corpuscular Volume 92.2 FL (87-102); Mean Platelet Volume 10.5 FL (9.6-12.0); Monocytes % 4.7 % (1.7-12.7); Neutrophils % 56.3 % (38.7-73.9); Platelet Count 271 T/CUMM (130-400); Red Blood Count 3.83 MC/CUMM (3.8-5.5); Red Cell Distribution Width 14.1 % (9.3-17.3); White Blood Count 8.4 T/CUMM (4-12)
[2021-03-05] MEDS: PIPERACILLIN/TAZOBACTAM 3,375 MG in SODIUM CHLORIDE 0.9% 100 ML IV SCH ×3 (06:35→23:29)
[2021-03-05 07:06] LABS: Albumin 2.9 G/DL (3.4-5.0); Bilirubin,Total 0.7 MG/DL (0.20-1.00); Calcium 8.4 MG/DL (8.5-10.1); Osmolality,Calculated 279.3 MOS/KG (273-304); Potassium 3.1 MMOL/L (3.5-5.1); Total Protein 6.2 G/DL (6.4-8.2)
[2021-03-05] MEDS: ASPIRIN EC 81 MG TABLET PO SCH (09:11)
[2021-03-05] MEDS: VALSARTAN 80 MG TABLET PO SCH (09:13)
[2021-03-05] MEDS: MAGNESIUM OXIDE 400 MG TABLET PO SCH ×2 (09:13→20:04)
[2021-03-05] MEDS: carvediloL 3.125 MG TABLET PO SCH ×2 (09:13→20:04)
[2021-03-05] MEDS: FUROSEMIDE 40 MG TABLET PO SCH (09:14)
[2021-03-05] MEDS: POTASSIUM CHLORIDE 20 MEQ TABLET PO SCH ×3 (09:14→20:04)
[2021-03-05] MEDS: SPIRONOLACTONE 25 MG TABLET PO SCH (09:14)
[2021-03-05] MEDS: ENOXAPARIN 40 MG/0.4 ML SYRINGE SUBCUT SCH (14:33)
[2021-03-05] MEDS: DIGOXIN 0.25 MG TABLET PO SCH (14:33)
[2021-03-05] MEDS ORDERED: HYDROmorphone 2 MG/1 ML VIAL IV PRN (16:06)
[2021-03-05] MEDS: HYDROmorphone 2 MG/1 ML VIAL IV PRN (20:06)
[2021-03-05] MEDS: ONDANSETRON 4 MG/2 ML VIAL IV PRN (20:48)
[2021-03-06] MEDS: HYDROmorphone 2 MG/1 ML VIAL IV PRN ×3 (03:02→20:15)
[2021-03-06] MEDS: PIPERACILLIN/TAZOBACTAM 3,375 MG in SODIUM CHLORIDE 0.9% 100 ML IV SCH ×2 (06:29→17:18)
[2021-03-06 08:20] LABS: Basophils # 0.1 10*3/uL (0.0-0.2); Basophils % 0.5 % (0.0-0.8); Eosinophils # 0.1 10*3/uL (0.0-0.87); Eosinophils % 0.5 % (0.00-10.9); Hematocrit 39.3 VOL% (35.7-47.0); Hemoglobin 12.2 GM/DL (12.0-16.0); Immature Granulocytes % 0.3 %; Immature Granulocytes Absolute 0.03 #; Lymphocytes # 3.4 10*3/uL (1.4-4.0); Lymphocytes % 33.6 % (21.3-54.2); Mean Corpuscular Volume 93.1 FL (87-102); Mean Platelet Volume 10.1 FL (9.6-12.0); Monocytes % 4.6 % (1.7-12.7); Neutrophils % 60.5 % (38.7-73.9); Platelet Count 286 T/CUMM (130-400); Red Blood Count 4.22 MC/CUMM (3.8-5.5); Red Cell Distribution Width 14.2 % (9.3-17.3); White Blood Count 10.2 T/CUMM (4-12)
[2021-03-06 08:39] LABS: Albumin 3.3 G/DL (3.4-5.0); Bilirubin,Total 0.7 MG/DL (0.20-1.00); Calcium 9.1 MG/DL (8.5-10.1); Osmolality,Calculated 273.7 MOS/KG (273-304); Total Protein 6.8 G/DL (6.4-8.2)
[2021-03-06 11:59] LABS: Osmolality,Calculated 272.7 MOS/KG (273-304); Potassium 4.1 MMOL/L (3.5-5.1)
[2021-03-06] MEDS: POTASSIUM CHLORIDE 20 MEQ TABLET PO SCH ×3 (12:19→20:14)
[2021-03-06] MEDS: SPIRONOLACTONE 25 MG TABLET PO SCH (12:20)
[2021-03-06] MEDS: VALSARTAN 80 MG TABLET PO SCH (12:20)
[2021-03-06] MEDS: ASPIRIN EC 81 MG TABLET PO SCH (12:20)
[2021-03-06] MEDS: carvediloL 3.125 MG TABLET PO SCH ×2 (12:21→20:14)
[2021-03-06] MEDS: MAGNESIUM OXIDE 400 MG TABLET PO SCH ×2 (12:21→20:14)
[2021-03-06] MEDS: DIGOXIN 0.25 MG TABLET PO SCH (12:21)
[2021-03-06] MEDS: FUROSEMIDE 40 MG TABLET PO SCH (12:22)
[2021-03-06] MEDS ORDERED: INDOCYANINE GREEN 25 MG VIAL IV ONE (12:42)
[2021-03-06] MEDS ORDERED: BUPIVACAINE MPF 0.25% 30 ML VIAL ONE (13:04)
[2021-03-06] MEDS ORDERED: LIDOCAINE 1%/EPI INJ 20 ML VIAL ONE (13:05)
[2021-03-06] MEDS ORDERED: HEPARIN/NACL 0.9% 2 UNITS/ML 1,000 UNIT/500 ML BAG IV ONE (13:06)
[2021-03-06] MEDS ORDERED: LIDOCAINE 1% 5 ML VIAL ONE (13:06)
[2021-03-06] MEDS ORDERED: DOBUTamine 0 MG/0 ML PREMIX IV ONE (13:17)
[2021-03-06] MEDS ORDERED: CIPROFLOXACIN/DEXAMETHASONE OTIC SUSP 7.5 ML BOTTLE ONE (13:21)
[2021-03-06] MEDS ORDERED: TISSUE ADHESIVE 1 EACH APPLICATOR TOP ONE (13:26)
[2021-03-06] MEDS ORDERED: ePHEDrine 50 MG/ML VIAL ONE (13:49)
[2021-03-06] MEDS ORDERED: propofoL 200 MG/20 ML VIAL IV ONE (13:49)
[2021-03-06] MEDS ORDERED: fentaNYL 100 MCG/2 ML VIAL ONE (13:49)
[2021-03-06] MEDS ORDERED: SEVOFLURANE 1 UNIT/15 MINUTE INH ONE (13:49)
[2021-03-06] MEDS ORDERED: ONDANSETRON 4 MG/2 ML VIAL ONE (13:49)
[2021-03-06] MEDS ORDERED: PHENYLEPHRINE 1 MG/10 ML SYRINGE IV ONE (13:49)
[2021-03-06] MEDS ORDERED: LIDOCAINE 2% 5 ML VIAL ONE (13:49)
[2021-03-06] MEDS ORDERED: ETOMIDATE 40 MG/20 ML VIAL IV ONE (13:49)
[2021-03-06] MEDS ORDERED: MIDAZOLAM 2 MG/2 ML VIAL ONE (13:49)
[2021-03-06] MEDS ORDERED: ROCURONIUM 50 MG/5 ML VIAL IV ONE (13:49)
[2021-03-06] MEDS ORDERED: LACTATED RINGERS 1,000 ML IV SCH (14:30)
[2021-03-06] MEDS ORDERED: diphenhydrAMINE 50 MG/1 ML VIAL IV PRN (14:37)
[2021-03-06] MEDS ORDERED: PROMETHAZINE INJ 25 MG in SODIUM CHLORIDE 0.9% 50 ML IV PRN (14:37)
[2021-03-06] MEDS ORDERED: HYDROmorphone 2 MG/1 ML VIAL IV PRN (14:37)
[2021-03-06] MEDS ORDERED: MEPERIDINE 50 MG/1 ML VIAL IV PRN (14:37)
[2021-03-06] MEDS ORDERED: ONDANSETRON 4 MG/2 ML VIAL IV PRN (14:37)
[2021-03-06] MEDS ORDERED: ALBUTEROL INHALER 18 GM INH ONE (14:57)
[2021-03-06] MEDS ORDERED: SUGAMMADEX 200 MG/2 ML VIAL IV ONE (15:30)
[2021-03-06] MEDS ORDERED: NEOSTIGMINE 10 MG/10 ML VIAL ONE (15:34)
[2021-03-06] MEDS ORDERED: GLYCOPYRROLATE 0.4 MG/2 ML VIAL ONE (15:34)
[2021-03-06] MEDS ORDERED: MEPERIDINE 25 MG/1 ML VIAL ONE (15:53)
[2021-03-06] MEDS: ONDANSETRON 4 MG/2 ML VIAL IV PRN (20:17)
[2021-03-07] MEDS: HYDROmorphone 2 MG/1 ML VIAL IV PRN (01:32)
[2021-03-07] MEDS: PIPERACILLIN/TAZOBACTAM 3,375 MG in SODIUM CHLORIDE 0.9% 100 ML IV SCH ×2 (01:32→09:31)
[2021-03-07 05:40] LABS: Basophils % 0.3 % (0.0-0.8)
[2021-03-07 05:46] LABS: Eosinophils # 0.1 10*3/uL (0.0-0.87); Eosinophils % 0.5 % (0.00-10.9); Hematocrit 37.9 VOL% (35.7-47.0); Immature Granulocytes % 0.3 %; Immature Granulocytes Absolute 0.03 #; Lymphocytes # 2.7 10*3/uL (1.4-4.0); Lymphocytes % 27.8 % (21.3-54.2); Mean Corpuscular HGB Conc 31.7 GM/DL (32-36); Mean Corpuscular Volume 93.8 FL (87-102); Mean Platelet Volume 10.5 FL (9.6-12.0); Monocytes % 4.9 % (1.7-12.7); Neutrophils % 66.2 % (38.7-73.9); Platelet Count 284 T/CUMM (130-400); Red Blood Count 4.04 MC/CUMM (3.8-5.5); White Blood Count 9.8 T/CUMM (4-12)
[2021-03-07 06:15] LABS: Calcium 8.9 MG/DL (8.5-10.1); Osmolality,Calculated 271.8 MOS/KG (273-304); Total Protein 6.1 G/DL (6.4-8.2)
[2021-03-07] MEDS: MAGNESIUM OXIDE 400 MG TABLET PO SCH (09:32)
[2021-03-07] MEDS: FUROSEMIDE 40 MG TABLET PO SCH (09:32)
[2021-03-07] MEDS: ASPIRIN EC 81 MG TABLET PO SCH (09:32)
[2021-03-07] MEDS: carvediloL 3.125 MG TABLET PO SCH (09:32)
[2021-03-07] MEDS: SPIRONOLACTONE 25 MG TABLET PO SCH (09:32)
[2021-03-07] MEDS: VALSARTAN 80 MG TABLET PO SCH (09:33)
[2021-03-07] MEDS: POTASSIUM CHLORIDE 20 MEQ TABLET PO SCH (09:33)
[2021-03-07 11:20] VITALS: BP 109/57
== END 2021-03-07 12:16 | disposition home or self-care (01) | DRG 418 ==
LOC: N.ED 02:50 → SUATTDRO 05:29 → N.EDINP 05:29 → N.TELES 06:29
PROVIDERS: ADMIT Internal Medicine; ATTEND Internal Medicine